=== PATIENT | female | born 1965 ===

== ENCOUNTER 2020-06-16 12:55 | Day surgery (SDC) | payer OTHER ==
[~2020-06-16 12:55] MED LIST: ASPIR 8181 MG PO; GEMFIBROZIL600 MG PO; METFORMIN HCL500 M3 PO; SIMVASTATIN20 MG PO
== END 2020-06-16 22:30 | disposition home or self-care (01) ==
LOC: O/R 12:55 → CIR.AMB 12:55
PROVIDERS: ATTEND Orthopaedic Surgery Sports Medicine
DX: M75.122 Complete rotator cuff tear or rupture of left shoulder, not specified as traumatic (principal); M75.42 Impingement syndrome of left shoulder; M75.22 Bicipital tendinitis, left shoulder; M24.012 Loose body in left shoulder; S46.212S Strain of muscle, fascia and tendon of other parts of biceps, left arm, sequela